=== PATIENT | male | born 1940 | race African-American/Black ===

== ENCOUNTER 2019-05-26 14:35 | Inpatient (IN) ==
[2019-05-26] MEDS ORDERED: METOCLOPRAMIDE 10 MG/2 ML VIAL IV STA (15:01)
[2019-05-26] MEDS ORDERED: PANTOPRAZOLE 40 MG VIAL IV STA (15:01)
[2019-05-26] MEDS ORDERED: SODIUM CHLORIDE 0.9% 1,000 ML IV STA (15:01)
[2019-05-26] MEDS ORDERED: DICYCLOMINE 20 MG/2 ML AMP IM ONE (15:01)
[2019-05-26] MEDS ORDERED: ONDANSETRON 4 MG/2 ML VIAL IV STA (15:01)
[2019-05-26 15:22] LABS: Basophils # 0.1 10*3/uL (0.0-0.2); Basophils % 0.2 % (0.0-0.8); Hematocrit 28.4 VOL% (42.0-52.0); Hemoglobin 8.7 GM/DL (14.0-18.0); Immature Granulocytes % 1.7 %; Immature Granulocytes Absolute 0.41 #; Lymphocytes # 1.2 10*3/uL (1.4-4.0); Lymphocytes % 5.2 % (21.2-54.2); Mean Corpuscular HGB Conc 30.6 GM/DL (32-36); Mean Corpuscular Volume 83.8 FL (87-102); Mean Platelet Volume 10.3 FL (9.6-12.0); Monocytes % 0.6 % (1.7-12.7); Neutrophils % 92.3 % (38.7-73.9); Platelet Count 312 T/CUMM (130-400); Red Blood Count 3.39 MC/CUMM (3.8-5.5); Red Cell Distribution Width 17.3 % (9.3-17.3); White Blood Count 23.6 T/CUMM (4-12)
[2019-05-26] MEDS ORDERED: MEROPENEM 1,000 MG in SODIUM CHLORIDE 0.9% 100 ML IV STA (15:33)
[2019-05-26 15:36] LABS: Alanine Aminotransferase 18 U/L (16-61); Albumin 2.3 G/DL (3.4-5.0); Alkaline Phosphatase 90 U/L (45-117); Amylase 44 U/L (25-115); Aspartate Amino Transferase 42 U/L (0-37); Blood Urea Nitrogen 48 MG/DL (7-18); Calcium 8.7 MG/DL (8.5-10.1); Estimated Glom Filtration Rate 31 ML/MIN; Glucose 189 MG/DL (74-106); Osmolality,Calculated 298.3 MOS/KG (273-304)
[2019-05-26] MEDS ORDERED: MEROPENEM 500 MG VIAL ONE (15:38)
[2019-05-26 15:39] LABS: Troponin I 0.062 NG/ML (0.00-0.045)
[2019-05-26 16:01] LABS: Band Neutrophils 5 % (0-10); Lymphocytes 5 % (20-55); Segmented Neutrophils 90 % (50-85); Total Cells Counted 100
[2019-05-26 16:02] LABS: Burr Cells Few; Elliptocytes Few; Platelet Estimate Normal
[2019-05-26 16:22] LABS: Apearance,Urine Slightly Hazy (Clear); Bilirubin,Urine Negative (Negative); Blood, Urine Large mg/dL (Negative); Glucose,Urine (UA) Negative (Negative); Ketones,Urine Negative (Negative); Nitrite,Urine Negative (Negative); Protein,Urine 100 MG/DL; RBC,Urine 182 /HPF (0-4); Urine Color Yellow (Yellow); Urine Urobilinogen < 2.0 EU/DL (0.2-1.0); WBC,Urine <1 /HPF (0-6)
[2019-05-26] MEDS ORDERED: PROMETHAZINE 25 MG TABLET PO PRN (16:58)
[2019-05-26] MEDS ORDERED: DEXTROSE 50% 25 GM/50 ML VIAL IV PRN (16:58)
[2019-05-26] MEDS ORDERED: MORPHINE 4 MG/1 ML VIAL IV PRN (16:58)
[2019-05-26] MEDS ORDERED: GLUCAGON 1 MG VIAL IM PRN (16:58)
[2019-05-26] MEDS ORDERED: ONDANSETRON 4 MG/2 ML VIAL IV PRN (16:58)
[2019-05-26] MEDS ORDERED: ACETAMINOPHEN 325 MG TABLET PO PRN (16:58)
[2019-05-26] MEDS ORDERED: guaiFENesin/DM ER 600-30 MG TABLET PO PRN (16:58)
[2019-05-26] MEDS ORDERED: diphenhydrAMINE CAP 25 MG CAPSULE PO PRN (16:58)
[2019-05-26] MEDS ORDERED: ZALEPLON 5 MG CAPSULE PO PRN (16:58)
[2019-05-26] MEDS ORDERED: DOCUSATE SODIUM 100 MG CAPSULE PO PRN (16:58)
[2019-05-26] MEDS ORDERED: SODIUM CHLORIDE 0.9% 1,000 ML IV SCH (17:00)
[2019-05-26] MEDS ORDERED: hydrALAZINE 20 MG/1 ML VIAL IV PRN (17:43)
[2019-05-26] MEDS ORDERED: DEXTROSE 10% 250 ML BAG IV PRN (17:44)
[2019-05-26] MEDS ORDERED: VANCOMYCIN INJ 1,000 MG in SODIUM CHLORIDE 0.9% 250 ML IV SCH (18:00)
[2019-05-26] MEDS ORDERED: POTASSIUM CHLORIDE 20 MEQ TABLET PO PRN (19:27)
[2019-05-26] MEDS ORDERED: PIPERACILLIN/TAZOBACTAM 3,375 MG in SODIUM CHLORIDE 0.9% 100 ML IV SCH (20:00)
[2019-05-26 20:27] VITALS: BP 100/42
[2019-05-26] MEDS ORDERED: INSULIN LISPRO 100 UNIT/ML SUBCUT SCH (21:00)
[2019-05-27] MEDS ORDERED: POLYETHYLENE GLYCOL POWDER 17 GM PACK PO SCH (09:00)
[2019-05-27] MEDS ORDERED: PANTOPRAZOLE 40 MG TABLET PO SCH (09:00)
== END 2019-05-26 21:56 | disposition expired | DRG 683 ==
LOC: N.ED 14:35 → N.EDINP 16:58 → N.4E 17:34
PROVIDERS: ADMIT Phlebology; ATTEND Phlebology